=== PATIENT | male | born 1955 | race African-American/Black ===

== ENCOUNTER 2023-12-18 23:20 | Emergency (ER) | payer MEDICARE, MEDICAID ==
[~2023-12-18] VITALS: Ht 170.2 cm; Wt 82.0 kg
[2023-12-18 23:33] VITALS: TEMP 98.3; O2SAT 99
[2023-12-19 00:31] LABS: BASOPHILS % 0.9 % (0.0-2.0); HEMATOCRIT. 35.3 % (42.0-52.0); HEMOGLOBIN. 12.4 g/dL (14.0-18.0); LYMPHOCYTES % 9.7 % (20.0-50.0); MEAN CORPUSCULAR HEMOGLOBIN 33.9 pg (28.0-32.0); MEAN CORPUSCULAR VOLUME 96.9 fL (80.0-94.0); MEAN PLATELET VOLUME 7.5 fl (7.4-10.4); MONOCYTES % 8.5 % (2.0-8.0); NEUTROPHILS % 79.9 % (40.0-76.0); PLATELET 272 x1000/uL (130-400); RED BLOOD CELL COUNT 3.65 mill/uL (4.7-6.1); RED CELL DISTRIBUTION WIDTH 14.2 % (11.6-14.6); WHITE BLOOD COUNT 6.1 x1000/uL (4.5-11.0)
[2023-12-19 00:42] LABS: ALANINE AMINOTRANSFERASE 38 IU/L (10-49); ALBUMIN 4.6 g/dL (3.2-4.8); ASPARTATE AMINOTRANSFERASE 26 IU/L (<34); BILIRUBIN TOTAL 0.5 mg/dL (0.1-1.0); CALCIUM 9.8 mg/dL (8.7-10.4); CARBON DIOXIDE 23 mEq/L (21-32); CHLORIDE 106 mEq/L (98-107); CREATININE 2.1 mg/dL (0.6-1.3); GLUCOSE 115 mg/dL (70-105); SODIUM 137 mEq/L (136-145); UREA NITROGEN BLOOD 19 mg/dL (9-23)
[2023-12-19 01:11] VITALS: BP 140/92; PULSE 88; RESP 18
[2023-12-19] MEDS: KETOROLAC 60MG/2ML VIAL IM STA (01:11)
[2023-12-19] MEDS: SODIUM CHLORIDE 0.9% 1,000 ML IV ONE (04:30)
== END 2023-12-19 06:35 | disposition left against medical advice (07) ==
LOC: ER 23:45 → CANBEDREQ 12-20 20:48
DX: N17.9 Acute kidney failure, unspecified (principal); N13.30 Unspecified hydronephrosis; N20.0 Calculus of kidney; Z85.9 Personal history of malignant neoplasm, unspecified
CPT/HCPCS: 99285; 36415; 74176; 96360; 80053; 83605; 83690; 85025; 96372; J1885